=== PATIENT | male | born 1990 | race Caucasian/White ===

== ENCOUNTER 2021-07-19 15:30 | Emergency (ER) | payer OTHER ==
[2021-07-19] MEDS ORDERED: NAPROXEN500 MG PO (19:06)
== END 2021-07-19 20:15 | disposition home or self-care (01) ==
LOC: FER 15:30
DX: M77.8 Other enthesopathies, not elsewhere classified (principal); E11.9 Type 2 diabetes mellitus without complications; F17.290 Nicotine dependence, other tobacco product, uncomplicated
CPT/HCPCS: 73630